=== PATIENT | female | born 1960 | race Caucasian/White ===

== ENCOUNTER → 2017-03-03 | Outpatient (CLI) | payer BC | LOC: FS 13:41 | PROVIDERS: ATTEND Internal Medicine Hematology & Oncology | DX: Z08 Encounter for follow-up examination after completed treatment for malignant neoplasm (principal); Z80.3 Family history of malignant neoplasm of breast; R79.89 Other specified abnormal findings of blood chemistry; Z92.21 Personal history of antineoplastic chemotherapy | CPT/HCPCS: 99213 ==

== ENCOUNTER 2018-08-30 14:29 | Outpatient (RCR) | payer BC | END 2018-11-28 | disposition home or self-care (01) | LOC: ONC 14:29 | PROVIDERS: ATTEND Internal Medicine Hematology & Oncology | DX: Z08 Encounter for follow-up examination after completed treatment for malignant neoplasm (principal); Z85.3 Personal history of malignant neoplasm of breast; F32.9 Major depressive disorder, single episode, unspecified; Z79.899 Other long term (current) drug therapy; Z92.21 Personal history of antineoplastic chemotherapy; Z92.3 Personal history of irradiation | CPT/HCPCS: 99213 ==

== ENCOUNTER → 2018-09-06 | Outpatient (CLI) | payer BC ==
--- NOTE | 2018-09-06 16:52 | Diagnostic Imaging Report ---
INDICATION: Left breast carcinoma. Patient reports recent history of bilateral breast rash. Patient currently complains of bilateral breast pain. No complaint of a palpable mass is reported today. COMPARISON: 03/06/2017 and 03/05/2016. TECHNIQUE: 2D and 3D bilateral diagnostic mammography was performed with CAD. FINDINGS: Scattered fibroglandular densities are identified. There are post therapeutic changes in the outer aspect of the left breast. The post surgical changes appear stable. There are benign calcifications. No discrete mass or malignant appearing microcalcifications are seen. The right breast is unremarkable. The axillae are unremarkable apart from post surgical changes on the left. IMPRESSION: No mammographic features suspicious for malignancy are identified. Even so, directed sonographic interrogation of the areas of pain in each breast is recommended and will be performed today. ACR BI-RADS Category 0: Incomplete. (Needs additional imaging evaluation). Result letter will be mailed to the patient. Note: At least 10% of breast cancer is not imaged by mammography. Dictated by: Dictated on workstation # [id number]
--- NOTE | 2018-09-06 19:54 | Diagnostic Imaging Report ---
INDICATION: Bilateral breast pain. CORRELATION is made with diagnostic mammogram earlier the same day. FINDINGS: Sonographic interrogation of the area of pain in the right breast which corresponds to the 8 to 9 o'clock location was performed. In addition, an area of pain on the left corresponds to the 3 to 4 o'clock location. No sonographic abnormalities are seen. No solid or cystic masses are identified. There are some calcifications in left breast showing some shadowing. No fluid collection is detected. IMPRESSION: BI-RADS category 2 No sonographic abnormality is identified. ACR BI-RADS Category 2: Benign findings. Result letter will be mailed to the patient. Note: At least 10% of breast cancer is not imaged by mammography. Dictated by: Dictated on workstation # [id number]
== END ==
LOC: RAD 13:56
PROVIDERS: ATTEND Nurse Practitioner Adult Health
DX: C50.912 Malignant neoplasm of unspecified site of left female breast (principal); N64.4 Mastodynia
CPT/HCPCS: 76642; 77066

== ENCOUNTER → 2018-10-27 | Outpatient (CLI) | payer BC ==
--- NOTE | 2018-10-27 14:45 | Diagnostic Imaging Report ---
INDICATION: Bronchitis, cough, congestion, and fever. FINDINGS: The lungs are clear. There is no infiltrate, effusion, pneumothorax, or failure pattern. IMPRESSION: No acute-appearing abnormality. Dictated by: Dictated on workstation # [id number]
== END ==
LOC: RAD FS 14:14
PROVIDERS: ATTEND Nurse Practitioner Family
DX: J40 Bronchitis, not specified as acute or chronic (principal); R50.9 Fever, unspecified
CPT/HCPCS: 71046

== ENCOUNTER → 2020-01-02 | Outpatient (CLI) | payer BC ==
[2020-01-02 13:29] LABS: BASOPHILS % (AUTO) 0 % (0-10); EOSINOPHILS # (AUTO) 0.1 10^3/uL (0.0-0.3); EOSINOPHILS % (AUTO) 2 % (0-10); HEMATOCRIT 45 % (35-52); HEMOGLOBIN 15.2 G/DL (11.5-16.0); LYMPHOCYTES % (AUTO) 18 % (12-44); MEAN CORPUSCULAR HEMOGLOBIN 30 PG (25-34); MEAN CORPUSCULAR HGB CONC 34 G/DL (32-36); MEAN CORPUSCULAR VOLUME 88 FL (80-99); MEAN PLATELET VOLUME 11.4 FL (7.4-10.4); MONOCYTES # (AUTO) 0.3 X 10^3 (0.0-1.0); MONOCYTES % (AUTO) 5 % (0-12); NEUTROPHILS % (AUTO) 74 % (42-75); PLATELET COUNT 101 10^3/uL (130-400); RED CELL DISTRIBUTION WIDTH 13.9 % (10.0-14.5); WHITE BLOOD COUNT 5.4 10^3/uL (4.3-11.0)
[2020-01-02 13:47] LABS: BILIRUBIN,TOTAL 0.4 MG/DL (0.1-1.0); CALCIUM 9.6 MG/DL (8.5-10.1); CREATININE SERUM 1.1 MG/DL (0.60-1.30); POTASSIUM 3.1 MMOL/L (3.6-5.0); TOTAL PROTEIN 7.7 GM/DL (6.4-8.2)
== END ==
LOC: EDSTATUS 03-14 16:32 → ONC 13:12
PROVIDERS: ATTEND Internal Medicine Hematology & Oncology
DX: C50.919 Malignant neoplasm of unspecified site of unspecified female breast (principal)
CPT/HCPCS: 80053; 85025; 99213

== ENCOUNTER → 2021-01-08 | Outpatient (CLI) | payer BC ==
--- NOTE | 2021-01-08 20:13 | Diagnostic Imaging Report ---
INDICATION: Routine screening. COMPARISON is made with prior mammograms from 09/15/2019 and 09/06/2018. 2-D and 3-D bilateral screening mammography was performed with CAD. Scattered fibroglandular densities are identified bilaterally. Post-therapeutic changes in the left breast are again noted. No discrete mass is identified. No malignant appearing microcalcifications are seen. There are benign calcifications bilaterally. Axillae are unremarkable. IMPRESSION: BI-RADS Category 2 No mammographic features suspicious for malignancy are identified. ACR BI-RADS Category 2: Benign findings. Result letter will be mailed to the patient. Note: At least 10% of breast cancer is not imaged by mammography. Dictated by: Dictated on workstation # [id number]
== END ==
LOC: RAD 14:30
PROVIDERS: ATTEND Internal Medicine Hematology & Oncology
DX: Z12.31 Encounter for screening mammogram for malignant neoplasm of breast (principal); C50.419 Malignant neoplasm of upper-outer quadrant of unspecified female breast
CPT/HCPCS: 77063; 77067

== ENCOUNTER → 2021-01-17 | Outpatient (CLI) | payer BC ==
[2021-01-17 13:30] LABS: BASOPHILS % (AUTO) 1 % (0-10); EOSINOPHILS # (AUTO) 0.1 10^3/uL (0.0-0.3); EOSINOPHILS % (AUTO) 2 % (0-10); HEMATOCRIT 44 % (35-52); HEMOGLOBIN 14.6 g/dL (11.5-16.0); LYMPHOCYTES # (AUTO) 1.7 10^3/uL (1.0-4.0); LYMPHOCYTES % (AUTO) 36 % (12-44); MEAN CORPUSCULAR HEMOGLOBIN 30 pg (25-34); MEAN CORPUSCULAR HGB CONC 33 g/dL (32-36); MEAN CORPUSCULAR VOLUME 89 fL (80-99); MONOCYTES # (AUTO) 0.4 10^3/uL (0.0-1.0); MONOCYTES % (AUTO) 8 % (0-12); NEUTROPHILS # (AUTO) 2.5 10^3/uL (1.8-7.8); NEUTROPHILS % (AUTO) 53 % (42-75); PLATELET COUNT 95 10^3/uL (130-400); WHITE BLOOD COUNT 4.7 10^3/uL (4.3-11.0)
[2021-01-17 14:02] LABS: ALANINE AMINOTRANSFERASE 26 U/L (0-55); ALBUMIN 4.2 GM/DL (3.2-4.5); ALKALINE PHOSPHATASE 110 U/L (40-136); BILIRUBIN,TOTAL 0.5 MG/DL (0.1-1.0); BUN/CREATININE RATIO 12; CALCIUM 9.3 MG/DL (8.5-10.1); CARBON DIOXIDE 30 MMOL/L (21-32); CHLORIDE 100 MMOL/L (98-107); CREATININE SERUM 0.84 MG/DL (0.60-1.30); GFR ESTIMATED > 60; GLUCOSE 123 MG/DL (70-105); POTASSIUM 2.8 MMOL/L (3.6-5.0); SODIUM 139 MMOL/L (135-145); TOTAL PROTEIN 7.8 GM/DL (6.4-8.2)
== END ==
LOC: ONC 13:23
PROVIDERS: ATTEND Internal Medicine Hematology & Oncology
DX: C50.012 Malignant neoplasm of nipple and areola, left female breast (principal); I10 Essential (primary) hypertension; E11.9 Type 2 diabetes mellitus without complications; E05.90 Thyrotoxicosis, unspecified without thyrotoxic crisis or storm; Z90.12 Acquired absence of left breast and nipple; Z92.3 Personal history of irradiation; Z92.21 Personal history of antineoplastic chemotherapy
CPT/HCPCS: 80053; 85025; G0463; 99213

== ENCOUNTER 2021-02-04 09:48 | Emergency (ER) | payer BC ==
[~2021-02-04] VITALS: Ht 154 cm; Wt 87.0 kg
[2021-02-04] MEDS ORDERED: ONDANSETRON 4 MG/2 ML (SDV) Z0FRAN IVP ONE (10:15)
[2021-02-04] MEDS ORDERED: fentaNYL INJ 100 MCG/2 ML AMP IVP ONE (10:15)
[2021-02-04] MEDS ORDERED: NS IV 1000 ML 1,000 ML IV SCH ×2 (10:15→12:15)
--- NOTE | 2021-02-04 10:19 | ED Abdominal Pain ---
General Chief Complaint: Abdominal/GI Problems Stated Complaint: DIAHRREA,N/V ABD PAIN Nursing Triage Note: Pt reports headache and leg cramps that started on 01/31, followed by diarrhea on 02/01. Pt states she took immodium on that day and began having abdominal pain and vomiting. Pt reports she continues to have vomiting and diarrhea and has been unable to keep solid foods down. Pt was seen at urgent care in [facility] and received shot "for pain". Source of Information: Patient Exam Limitations: No Limitations History of Present Illness Date Seen by Provider: Feb 04, 2021 Time Seen by Provider: 09:56 Initial Comments Patient to the ER by private conveyance from home with chief complaint of continued nausea vomiting and loose stools since , 4 days ago. She started off with just diarrhea but she took some Pepto-Bismol and Imodium which stopped her diarrhea 2 to 3 days ago. She then started having copious vomiting and epigastric pain. She has had hysterectomy, C-sections but no other abdominal surgery. She has had left breast cancer with lumpectomy known to Dr. Jaimes. She is type II diabetic but not on insulin. She is not having any dysuria fevers cough shortness of air. She has had Covid in July and moved her in a vaccines for Covid since then. She went to the urgent care at [facility] this morning and they did a Covid test but she does not have the results for couple days. Urgent Care gave her a shot of something for pain and nausea but she does not know the names of them. She says they have not helped. She was directed to go to the ER. Allergies and Home Medications Allergies Coded Allergies: morphine (Unverified Allergy, Unknown, 02/04/21) Home Medications L.acidoph & Paracasei,B.lactis 1 Each Capsule, 1 EACH PO BID Prescribed by: RYLEY JOHNSON on 02/04/21 144 Omeprazole 20 Mg Capsule.dr, 20 MG PO BID Prescribed by: RYLEY JOHNSON on 02/04/21 144 Ondansetron 4 Mg Tab.rapdis, 4-8 MG PO Q6H PRN for NAUSEA/VOMITING Prescribed by: RYLEY JOHNSON on 02/04/21 1446 Patient Home Medication List Home Medication List Reviewed: Yes Review of Systems Review of Systems Constitutional: No chills, No fever; malaise EENTM: No Blurred Vision, No Double Vision Respiratory: Denies Cough, Denies Shortness of Air Cardiovascular: Denies Chest Pain, Denies Lightheadedness Gastrointestinal: Denies Constipated; Diarrhea, Nausea, Poor Fluid Intake, Vomiting Genitourinary: Denies Burning, Denies Discharge Musculoskeletal: No back pain, No joint pain All Other Systems Reviewed Negative Unless Noted: Yes Past Ctkjege-Rgcyew-Gxazig Hx Patient Social History Tobacco Use?: No Substance use?: No Pt feels they are or have been: No Immunizations Up To Date Second COVID19 Vaccination Juanito: November 2020 COVID19 Vaccine Vp [employer]: Moderna Physical Exam Vital Signs Vital Signs - First Documented 02/04/21 02/04/21 09:58 11:10 Temp 36.5 Pulse 84 Resp 18 B/P (MAP) 130/87 (101) Pulse Ox 96 O2 Delivery Room Air O2 Flow Rate 2.00 FiO2 96 Capillary Refill : Less Than 3 Seconds Height/Weight/BMI Height: '" Weight: lbs. oz. kg; 36.00 BMI Method: General Appearance: WD/WN, mild distress HEENT: PERRL/EOMI, pharynx normal Neck: full range of motion, normal inspection Respiratory: no respiratory distress, no accessory muscle use Cardiovascular: normal peripheral pulses, regular rate, rhythm Gastrointestinal: normal bowel sounds, soft, tenderness Extremities: non-tender, normal capillary refill Neurologic/Psychiatric: alert, normal mood/affect, oriented x 3 Skin: normal color, warm/dry Progress/Results/Core Measures Results/Orders Lab Results Laboratory Tests Test 02/04/21 10:24 02/04/21 12:14 Range/Units White Blood Count 6.1 4.3-11.0 10^3/uL Red Blood Count 5.24 H 3.80-5.11 10^6/uL Hemoglobin 15.4 11.5-16.0 g/dL Hematocrit 46 35-52 % Mean Corpuscular Volume 88 80-99 fL Mean Corpuscular Hemoglobin 29 25-34 pg Mean Corpuscular Hemoglobin Concent 34 32-36 g/dL Red Cell Distribution Width 14.6 H 10.0-14.5 % Platelet Count 97 L 130-400 10^3/uL Mean Platelet Volume 11.0 9.0-12.2 fL Immature Granulocyte % (Auto) 1 % Neutrophils (%) (Auto) 47 42-75 % Lymphocytes (%) (Auto) 42 12-44 % Monocytes (%) (Auto) 8 0-12 % Eosinophils (%) (Auto) 2 0-10 % Basophils (%) (Auto) 0 0-10 % Neutrophils # (Auto) 2.9 1.8-7.8 10^3/uL Lymphocytes # (Auto) 2.5 1.0-4.0 10^3/uL Monocytes # (Auto) 0.5 0.0-1.0 10^3/uL Eosinophils # (Auto) 0.1 0.0-0.3 10^3/uL Basophils # (Auto) 0.0 0.0-0.1 10^3/uL Immature Granulocyte # (Auto) 0.0 0.0-0.1 10^3/uL Percent Immature Platelet Fraction 4.2 0.0-7.6 % Sodium Level 138 135-145 MMOL/L Potassium Level 2.6 L 3.6-5.0 MMOL/L Chloride Level 104 98-107 MMOL/L Carbon Dioxide Level 25 21-32 MMOL/L Anion Gap 9 5-14 MMOL/L Blood Urea Nitrogen 14 7-18 MG/DL Creatinine 0.69 0.60-1.30 MG/DL Estimat Glomerular Filtration Rate > 60 BUN/Creatinine Ratio 20 Glucose Level 102 70-105 MG/DL Calcium Level 7.5 L 8.5-10.1 MG/DL Corrected Calcium 8.1 L 8.5-10.1 MG/DL Magnesium Level 1.8 1.6-2.4 MG/DL Total Bilirubin 0.5 0.1-1.0 MG/DL Aspartate Amino Transf (AST/SGOT) 25 5-34 U/L Alanine Aminotransferase (ALT/SGPT) 20 0-55 U/L Alkaline Phosphatase 58 40-136 U/L C-Reactive Protein High Sensitivity 1.17 H 0.00-0.50 MG/DL Total Protein 5.4 L 6.4-8.2 GM/DL Albumin 3.2 3.2-4.5 GM/DL Lipase 39 8-78 U/L Influenza Type A (RT-PCR) Not Detected Not Detecte Influenza Type B (RT-PCR) Not Detected Not Detecte SARS-CoV-2 RNA (RT-PCR) Not Detected Not Detecte Urine Color YELLOW Urine Clarity CLEAR Urine pH 6.0 5-9 Urine Specific Mission <=1.005 1.016-1.022 Urine Protein NEGATIVE NEGATIVE Urine Glucose (UA) 3+ H NEGATIVE Urine Ketones NEGATIVE NEGATIVE Urine Nitrite NEGATIVE NEGATIVE Urine Bilirubin NEGATIVE NEGATIVE Urine Urobilinogen 0.2 < = 1.0 MG/DL Urine Leukocyte Esterase NEGATIVE NEGATIVE Urine RBC (Auto) NEGATIVE NEGATIVE Urine RBC NONE /HPF Urine WBC 0-2 /HPF Urine Squamous Epithelial Cells 2-5 /HPF Urine Crystals PRESENT H /LPF Urine Amorphous Sediment FEW VALERIE URATES H /LPF Urine Bacteria TRACE /HPF Urine Casts NONE /LPF Urine Mucus NEGATIVE /LPF Urine Culture Indicated NO My Orders Orders - RYLEY JOHNSON Ed Iv/Invasive Line Start (02/04/21 10:15) Ns Iv 1000 Ml (Sodium Chloride 0.9%) (02/04/21 10:15) Ct Abdomen/Pelvis W (02/04/21 10:15) Cbc With Automated Diff (02/04/21 10:15) Comprehensive Metabolic Panel (02/04/21 10:15) Hs C Reactive Protein (02/04/21 10:15) Lipase (02/04/21 10:15) Ondansetron Injection (Zofran Injectio (02/04/21 10:15) Fentanyl Inj (Sublimaze Injection) (02/04/21 10:15) Ua Culture If Indicated (02/04/21 10:15) Covid 19 Inhouse Test (02/04/21 10:19) Influenza A And B By Pcr (02/04/21 10:19) Potassium Cl 10meq/50ml Ivpb (Kcl 10 Meq (02/04/21 11:15) Magnesium (02/04/21 11:09) Iohexol Injection (Omnipaque 350 Mg/Ml 1 (02/04/21 11:30) Received Contrast (Hold Metformin- Contr (02/04/21 11:30) Ns (Ivpb) (Sodium Chloride 0.9% Ivpb Bag (02/04/21 11:30) Sodium Chloride Flush (Catheter Flush Sy (02/04/21 11:30) Ed Iv/Invasive Line Start (02/04/21 12:10) Ns Iv 1000 Ml (Sodium Chloride 0.9%) (02/04/21 12:15) Ns Iv 1000 Ml (Sodium Chloride 0.9%) (02/04/21 12:11) Orthostatic Vital Signs (Adult (02/04/21 13:28) Lidocaine 2% Viscous 15 Ml (Xylocaine Vi (02/04/21 13:30) Famotidine Tablet (Pepcid Tablet) (02/04/21 13:28) Antacid Suspension (Mylanta Suspension (02/04/21 13:30) Ed Iv/Invasive Line Start (02/04/21 13:37) Lactated Ringers (Lr 1000 Ml Iv Solution (02/04/21 13:45) Metoclopramide Injection (Reglan Injecti (02/04/21 15:15) Diphenhydramine Tablet (Benadryl Tablet) (02/04/21 15:15) Medications Given in ED Current Medications Medications Dose Ordered Sig/Vianca Route Start Time Stop Time Status Last Admin Dose Admin Al Hydrox/Mg Hydrox/Simethicone 30 ml ONCE ONCE PO 02/04/21 13:30 02/04/21 13:31 DC 02/04/21 13:55 30 ML Diphenhydramine HCl 25 mg ONCE ONCE PO 02/04/21 15:15 02/04/21 15:16 DC 02/04/21 15:16 25 MG Fentanyl Citrate 50 mcg ONCE ONCE IVP 02/04/21 10:15 02/04/21 10:18 DC 02/04/21 10:55 50 MCG Iohexol 100 ml ONCE ONCE IV 02/04/21 11:30 02/04/21 11:31 DC 02/04/21 12:07 100 ML Lactated Ringer's 1,000 ml @ 0 mls/hr Q0M ONCE IV 02/04/21 13:45 02/04/21 13:46 DC 02/04/21 13:51 1,000 MLS/HR Lidocaine HCl 15 ml ONCE ONCE PO 02/04/21 13:30 02/04/21 13:31 DC 02/04/21 13:55 15 ML Metoclopramide HCl 5 mg ONCE ONCE IVP 02/04/21 15:15 02/04/21 15:16 DC 02/04/21 15:07 5 MG Ondansetron HCl 4 mg ONCE ONCE IVP 02/04/21 10:15 02/04/21 10:18 DC 02/04/21 10:54 4 MG Potassium Chloride 50 ml @ 50 mls/hr ONCE ONCE IV 02/04/21 11:15 02/04/21 12:14 DC 02/04/21 12:13 50 MLS/HR Sodium Chloride 10 ml NEEDED PRN IV 02/04/21 11:30 02/04/21 15:42 DC 02/04/21 12:07 10 ML Sodium Chloride 100 ml ONCE ONCE IV 02/04/21 11:30 02/04/21 11:31 DC 02/04/21 12:07 80 ML Vital Signs/I&O 02/04/21 02/04/21 02/04/21 02/04/21 09:58 11:10 13:42 15:16 Temp 36.5 37.0 Pulse 84 78 82 84 84 Resp 18 20 B/P (MAP) 130/87 (101) 93/63 (73) 103/68 150/73 (98) 102/67 (79) Pulse Ox 96 99 O2 Delivery Room Air Nasal Cannula Room Air O2 Flow Rate 2.00 FiO2 96 Blood Pressure Mean: 101 Progress Progress Note #1: Time: 13:19 Progress Note Patient had good blood pressures initially however they continue to drift down. She got 2 L of fluid with switch to the other arm and her blood pressure was okay. We are going to do some orthostatics and see if she has any orthostasis as well as give her a GI cocktail for epigastric pain. If she does well with this then we will let her go home. Progress Note #2: Time: 13:48 Progress Note Orthostatic vital signs are not remarkable for orthostatic hypotension. Her blood pressure went up as she stood up. She did not have any near syncope. Patient's blood pressure was soft so we will initiate another liter of fluids. We did give her the option for observation stay and some fluids overnight but she would prefer to go home to her family so she would like to do fluids in the ER. If the first liter does not work we will give her a second 1 and reevaluate. Progress Note #3: Time: 14:42 Progress Note The patient's blood pressure has improved to 110/75. We are going to give her a round of Carafate and encourage her to take omeprazole 20 twice a day instead of 40 once a day. We will give her a referral to Dr. Barros to discuss EGD if her symptoms persist. Diagnostic Imaging Diagonstic Imaging: CT Plain Films/CT/US/NM/MRI: abdomen, pelvis Comments [facility] [place], [place] NAME: PORSHA COLLIER [facility] REC#: [id number] PT STATUS: REG ER : 1960 PHYSICIAN: RYLEY JOHNSON MD ADMIT DATE: 02/04/21/ER Draft Date of Exam:02/04/21 CT ABDOMEN/PELVIS W PROCEDURE: CT abdomen and pelvis with contrast. TECHNIQUE: Multiple contiguous axial images were obtained through the abdomen and pelvis after administration of intravenous contrast. Auto Exposure Controls were utilized during the CT exam to meet ALARA standards for radiation dose reduction. All CT scans use one or more of the following dose optimizing techniques: automated exposure control, MA and/or KvP adjustment based on patient size and exam type or iterative reconstruction. INDICATION: Headache and leg cramping for 4 days. Patient also has diarrhea and abdominal pain as well as vomiting for 3 days. COMPARISON: No prior studies are available for comparison. FINDINGS: The lung bases are clear. There is generalized low density throughout the liver, consistent with hepatic steatosis. No discrete liver mass is detected. There is no biliary ductal dilatation. The pancreas and spleen are unremarkable. No adrenal mass is detected. The kidneys are unremarkable. The aorta is nonaneurysmal. No central retroperitoneal or mesenteric lymphadenopathy is identified. The bowel loops are of normal caliber. There is no obstruction. There is no free fluid or fluid collection. The bladder is unremarkable. No definite pelvic lymphadenopathy is identified. The bony structures are unremarkable. IMPRESSION: 1. Hepatic steatosis. 2. Otherwise, unremarkable CT of the abdomen and pelvis. No acute abnormality is detected. Dictated on workstation # [id number] Dict: 02/04/21 1237 Trans: 02/04/21 1241 [id number] Interpreted by: BULL ORDAZ MD Electronically signed by: Reviewed: Reviewed by Me Departure Impression Primary Impression: Gastroenteritis and colitis, viral Additional Impression: Gastritis Qualified Codes: K29.00 - Acute gastritis without bleeding Disposition: HOME, SELF-CARE Condition: Stable Departure-Patient Inst. Decision time for Depature: 14:43 Referrals: [facility] (PCP) Primary Care Physician VIOLETA SUTTON APRN (Family) Primary Care Physician GARY BARROS DO Patient Instructions: Gastritis, Viral Gastroenteritis, Adult (DC) Add. Discharge Instructions: Drink lots of fluids especially sports drinks. Maalox, Mylanta, Tums, Rolaids etc. as necessary for burning pain in your belly or esophagus. Carafate half an hour before you eat meals and at bedtime for the next 2 weeks to protect the lining of your esophagus and stomach. Start taking omeprazole 20 mg twice a day for the next month and then resume your normal dose. Zofran 1 to 2 tablets every 6 hours under the tongue as necessary for nausea and/or vomiting. Follow-up with your primary care doctor in the next 1 to 2 weeks for reevaluation. Return to the nearest ER promptly if you are developing worsening pain, intractable nausea and vomiting or other worrisome symptoms. Imodium 2 tablets initially followed by 1 tablet every 4 hours afterwards that you are still having loose watery stools. Probiotics 1 capsule twice a day to replenish your normal gut bacteria for the next month. All discharge instructions reviewed with patient and/or family. Voiced understanding. Scripts Ondansetron (Ondansetron Odt) 4 Mg Tab.rapdis 4-8 MG PO Q6H PRN for NAUSEA/VOMITING, #15 TAB 0 Refills Prov: RYLEY JOHNSON 02/04/21 L.acidoph & Paracasei,B.lactis (Probiotic) 1 Each Capsule 1 EACH PO BID for 30 Days, #6 CAP 0 Refills Prov: RYLEY JOHNSON 02/04/21 Omeprazole (Omeprazole) 20 Mg Capsule.dr 20 MG PO BID for 30 Days, #60 CAP 0 Refills Prov: RYLEY JOHNSON 02/04/21 Copy Copies To 1: GARY BARROS DO RYLEY JOHNSON Feb 04, 2021 10:19
[2021-02-04 10:36] LABS: BASOPHILS % (AUTO) 0 % (0-10)
[2021-02-04 10:38] LABS: EOSINOPHILS # (AUTO) 0.1 10^3/uL (0.0-0.3); EOSINOPHILS % (AUTO) 2 % (0-10); HEMATOCRIT 46 % (35-52); HEMOGLOBIN 15.4 g/dL (11.5-16.0); LYMPHOCYTES # (AUTO) 2.5 10^3/uL (1.0-4.0); LYMPHOCYTES % (AUTO) 42 % (12-44); MEAN CORPUSCULAR HEMOGLOBIN 29 pg (25-34); MEAN CORPUSCULAR HGB CONC 34 g/dL (32-36); MEAN CORPUSCULAR VOLUME 88 fL (80-99); MONOCYTES # (AUTO) 0.5 10^3/uL (0.0-1.0); MONOCYTES % (AUTO) 8 % (0-12); NEUTROPHILS # (AUTO) 2.9 10^3/uL (1.8-7.8); NEUTROPHILS % (AUTO) 47 % (42-75); PLATELET COUNT 97 10^3/uL (130-400); WHITE BLOOD COUNT 6.1 10^3/uL (4.3-11.0)
[2021-02-04 10:44] LABS: ALBUMIN 3.2 GM/DL (3.2-4.5); CHLORIDE 104 MMOL/L (98-107); POTASSIUM 2.6 MMOL/L (3.6-5.0); SODIUM 138 MMOL/L (135-145)
[2021-02-04 10:45] LABS: CALCIUM 7.5 MG/DL (8.5-10.1)
[2021-02-04 10:47] LABS: GLUCOSE 102 MG/DL (70-105); TOTAL PROTEIN 5.4 GM/DL (6.4-8.2)
[2021-02-04 10:48] LABS: BILIRUBIN,TOTAL 0.5 MG/DL (0.1-1.0); CARBON DIOXIDE 25 MMOL/L (21-32)
[2021-02-04 10:50] LABS: ALKALINE PHOSPHATASE 58 U/L (40-136); CREATININE SERUM 0.69 MG/DL (0.60-1.30); GFR ESTIMATED > 60
[2021-02-04 10:51] LABS: BUN/CREATININE RATIO 20
[2021-02-04 10:53] LABS: ALANINE AMINOTRANSFERASE 20 U/L (0-55)
[2021-02-04 10:54] LABS: LIPASE 39 U/L (8-78)
[2021-02-04] MEDS ORDERED: POTASSIUM CL 10MEQ/50ML IVPB 50 ML IV ONE (11:15)
[2021-02-04] MEDS ORDERED: CATHETER FLUSH 10 ML SYR IV PRN (11:30)
[2021-02-04] MEDS ORDERED: IOHEXOL 350 MG/ML 100 ML (OMNIPAQUE 350) VIAL IV ONE (11:30)
[2021-02-04] MEDS ORDERED: HOLD METFORMIN - RECEIVED CONTRAST 20 ML VIAL IV SCH (11:30)
[2021-02-04] MEDS ORDERED: NS 100 ML (IVPB) BAG IV ONE (11:30)
[2021-02-04] MEDS ORDERED: NS IV 1000 ML 1,000 ML ONE (12:11)
[2021-02-04 12:26] LABS: BILIRUBIN,URINE NEGATIVE (NEGATIVE); CLARITY,URINE CLEAR; COLOR,URINE YELLOW; GLUCOSE, URINE (UA) 3+ (NEGATIVE); KETONES,URINE NEGATIVE (NEGATIVE); LEUKOCYTE ESTERASE ,URINE NEGATIVE (NEGATIVE); NITRITE,URINE NEGATIVE (NEGATIVE); PROTEIN,URINE NEGATIVE (NEGATIVE)
[2021-02-04 12:39] LABS: BACTERIA,URINE TRACE /HPF; WBC,URINE 0-2 /HPF
[2021-02-04 12:40] LABS: AMORPHOUS SEDIMENT,UR FEW AMOR URATES /LPF
--- NOTE | 2021-02-04 12:42 | Diagnostic Imaging Report ---
PROCEDURE: CT abdomen and pelvis with contrast. TECHNIQUE: Multiple contiguous axial images were obtained through the abdomen and pelvis after administration of intravenous contrast. Auto Exposure Controls were utilized during the CT exam to meet ALARA standards for radiation dose reduction. All CT scans use one or more of the following dose optimizing techniques: automated exposure control, MA and/or KvP adjustment based on patient size and exam type or iterative reconstruction. INDICATION: Headache and leg cramping for 4 days. Patient also has diarrhea and abdominal pain as well as vomiting for 3 days. COMPARISON: No prior studies are available for comparison. FINDINGS: The lung bases are clear. There is generalized low density throughout the liver, consistent with hepatic steatosis. No discrete liver mass is detected. There is no biliary ductal dilatation. The pancreas and spleen are unremarkable. No adrenal mass is detected. The kidneys are unremarkable. The aorta is nonaneurysmal. No central retroperitoneal or mesenteric lymphadenopathy is identified. The bowel loops are of normal caliber. There is no obstruction. There is no free fluid or fluid collection. The bladder is unremarkable. No definite pelvic lymphadenopathy is identified. The bony structures are unremarkable. IMPRESSION: 1. Hepatic steatosis. 2. Otherwise, unremarkable CT of the abdomen and pelvis. No acute abnormality is detected. Dictated by: Dictated on workstation # [id number]
[2021-02-04] MEDS ORDERED: FAMOTIDINE 20 MG (PEPCID) TABLET PO STA (13:28)
[2021-02-04] MEDS ORDERED: ANTACID SUSP 30 ML UDC (MYLANTA) PO ONE (13:30)
[2021-02-04] MEDS ORDERED: LIDOCAINE 2% VISCOUS 15 ML UDC PO ONE (13:30)
[2021-02-04 13:42] VITALS: BP_SYST 102; BP_SYST 150; BP_SYST 93; BP_DIAS 63; BP_DIAS 67; BP_DIAS 73
[2021-02-04] MEDS ORDERED: LACTATED RINGERS 1,000 ML IV ONE (13:45)
[2021-02-04] MEDS ORDERED: L.AC1CAP6 PO (14:46)
[2021-02-04] MEDS ORDERED: ONDA4TAB11 PO (14:46)
[2021-02-04] MEDS ORDERED: OMEP20CA18 PO (14:46)
[2021-02-04] MEDS ORDERED: diphenhydrAMINE 25 MG TAB (BENADRYL) PO ONE (15:15)
[2021-02-04] MEDS ORDERED: METOCLOPRAMIDE INJ 10 MG/2 ML (REGLAN) IVP ONE (15:15)
[2021-02-04 15:16] VITALS: BP 103/68
== END 2021-02-04 15:16 | disposition home or self-care (01) ==
LOC: EDUNIT# 09:48 → ER 09:50
DX: K52.9 Noninfective gastroenteritis and colitis, unspecified (principal); K29.70 Gastritis, unspecified, without bleeding; E11.9 Type 2 diabetes mellitus without complications; Z90.12 Acquired absence of left breast and nipple; Z90.710 Acquired absence of both cervix and uterus; Z20.822 Contact with and (suspected) exposure to COVID-19
CPT/HCPCS: 36415; 74177; 80053; 81000; 83690; 83735; 85025; 86141; 87636

== ENCOUNTER 2021-03-07 05:28 | Outpatient (RCR) | payer BC ==
[~2021-03-07] VITALS: Ht 154.9 cm; Wt 88.9 kg
[~2021-03-07 05:28] MED LIST: ALPR0.5T7 PO; ATOR10TA66 PO; DAPA10TA PO; DULA1.5P2 SQ; GABA-490 PO; HYDR25TA4 PO; L.AC1CAP6 PO; LEVO75CA5 PO; MELA10TA7 PO; OLME40TA18 PO; OMEP20CA18 PO; ONDA4TAB11 PO; SUCR1TAB PO; VENL150T PO; VENL37.57 PO; ZOLP10TA PO
== END 2021-03-07 10:49 | disposition home or self-care (01) ==
LOC: PREOP 05:28
PROVIDERS: ATTEND Surgery
DX: Z01.818 Encounter for other preprocedural examination (principal); R13.10 Dysphagia, unspecified; Z12.11 Encounter for screening for malignant neoplasm of colon; Z20.822 Contact with and (suspected) exposure to COVID-19
CPT/HCPCS: 87635

== ENCOUNTER 2021-03-11 08:51 | Day surgery (SDC) | payer BC ==
[2021-03-11] VITALS (8 sets, daily range): BP systolic 107–129; BP diastolic 57–72
[2021-03-11] MEDS ORDERED: LACTATED RINGERS 1,000 ML IV STA (08:57)
[2021-03-11] MEDS ORDERED: HURRICAINE EXT TUBE (BENZOCAINE) XX PRN (09:00)
--- NOTE | 2021-03-11 09:09 | Progress Note-Pre Operative ---
Pre-Operative Progress Note H&P Reviewed The H&P was reviewed, patient examined and no changes noted. Time Seen by Provider: 09:07 Date H&P Reviewed: Mar 11, 2021 Time H&P Reviewed: 09:07 Pre-Operative Diagnosis: Chronic Gastritis, Dysphagia, Screening colonoscopy LEONARDO SHARMA DO Mar 11, 2021 09:09
[2021-03-11] MEDS ORDERED: MIDAZOLAM 2 MG/2 ML (VERSED) VIAL ONE (09:41)
[2021-03-11] MEDS ORDERED: PROPOFOL INJECTION 50 ML IV ONE ×2 (09:41→09:57)
--- NOTE | 2021-03-11 10:42 | Progress Note-Post Operative ---
Post-Operative Progess Note Surgeon (s)/Time Signal Wirer (s) Surgeon LEONARDO SHARMA DO Time Signal Wirer: Heron Chin, MSIII Pre-Operative Diagnosis Chronic Gastritis, Dysphagia, Screening colonoscopy Post-Operative Diagnosis Gastritis Esophagitis Hiatal hernia Gastric polyp Polyps of colon int hemorrhoids Procedure & Operative Findings Date of Procedure 03/11/21 Procedure Performed/Findings 1) EGD with bx 2) EGD with hot bx removal of polyp 3) Colon with snare polypectomy PROCEDURE NOTE: After informed consent was obtained, the patient was brought to the endoscopy suite, placed in bed in left lateral decubitus position. She was administered IV sedation by the SCCM ADMINISTRATOR who then monitored vitals the entire time, heart rate, blood pressure and pulse ox and the scope was inserted down the mouth through the esophagus into the stomach. On the way down, noted some mild esophagitis, took a picture, pushed into the stomach, pushed past the antrum into the duodenum. Duodenum looked good. Pulled back and did a biopsy of antrum, then retroflexed the scope and saw gastric polyps (possibly inflammatory) and a small hiatal hernia. Took a picture of these and then did biopsy of the antrum. I then elected to remove a Gastric polyp with hot biopsy; completely removed one and then biopsied another. Next pulled the scope into the GE junction and then did a biopsy of the GE junction. Pushed the scope back into the stomach, took another picture and then suctioned all the air out of the stomach. At this point pulled the scope up the esophagus and out the mouth. I did not see any cause of dysphagia in the esophagus. Switched camera, switched gloves, went down below and started the colonoscopy. Pushed all the way into about 160 cm to get all the way to cecum. In the ascending colon I found a polyp and did a snare polypectomy. Once in the cecum took a picture of the appendiceal orifice, noted the ileocecal valve and found another polyp. Did another snare polypectomy of this one. Finally, slowly withdrew the scope, insufflating to look circumferentially at the farfan starting in the cecum and up the ascending colon; where I found another polyp. Removed this one with snare polypectomy as well and continued to the hepatic flexure, then down the transverse colon, splenic flexure, into the descending colon, down into the sigmoid and finally into the rectum, retroflexed in the rectal vault, saw some minimal internal hemorrhoids and took a picture of this. ] The patient tolerated the procedure and she recovered in the endoscopy suite. Anesthesia Type IV sedation by SCCM ADMINISTRATOR Estimated Blood Loss Estimated blood loss (mL): scant Specimens/Packing Specimens Removed antral bx GE jxn bx Gastric polyp x 2 asc colon polyp x 2 cecal polyp LEONARDO SHARMA DO Mar 11, 2021 10:42
--- NOTE | 2021-03-11 10:44 | Endoscopy Discharge Instruct ---
Endo Procedure/Findings Findings 1.: Hiatal Hernia, Gastritis 2.: Polyp (Gastric - multiple) 3.: Polyp (colon) 4.: Internal Hemorrhoids Discharge Instructions - Activity: You might feel a little sleepy until tomorrow. This is due to the medicine you received to relax you. Until tomorrow, you should: NOT drive a car, operate machinery or power tools. NOT drink any alcoholic beverages. NOT make any important decisions or sign importortant papers. Do not return to work until tomorrow, unless otherwise instructed. Resume previous activities tomorrow. Diet: Start by taking liquids. If you tolerate liquids, advance to solid food. 1.: EGD in 1 year 2.: Colonscopy in 3 years Notify Physician - If you experience excessive bleeding, unusual abdominal pain, fever, or chest pain, contact your doctor immediately. LEONARDO SHARMA DO Mar 11, 2021 10:44
--- NOTE | 2021-03-11 12:37 | Anesthesia-General Post-Op ---
MAC Patient Condition Mental Status/LOC: Same as Preop Cardiovascular: Satisfactory Nausea/Vomiting: Absent Respiratory: Satisfactory Pain: Controlled Complications: Absent Post Op Complications Complications None Follow Up Care/Instructions Patient Instructions None needed. Anesthesiology Discharge Order Discharge Order Patient is doing well, no complaints, stable vital signs, no apparent adverse anesthesia problems. No complications reported per nursing. ANNA GAMBOA CRNA Mar 11, 2021 12:37
== END 2021-03-11 11:13 | disposition home or self-care (01) ==
LOC: ENDO 08:51
PROVIDERS: ATTEND Surgery
DX: D12.2 Benign neoplasm of ascending colon (principal); D12.0 Benign neoplasm of cecum; K29.50 Unspecified chronic gastritis without bleeding; K20.90 Esophagitis, unspecified without bleeding; K44.9 Diaphragmatic hernia without obstruction or gangrene; K31.7 Polyp of stomach and duodenum; K64.8 Other hemorrhoids; I10 Essential (primary) hypertension; E11.9 Type 2 diabetes mellitus without complications; E03.9 Hypothyroidism, unspecified; Z79.899 Other long term (current) drug therapy; Z79.84 Long term (current) use of oral hypoglycemic drugs; Z79.890 Hormone replacement therapy
CPT/HCPCS: 88305

== ENCOUNTER 2021-03-13 21:53 | Emergency (ER) | payer BC | END 2021-03-13 22:30 | disposition left against medical advice (07) | LOC: EDUNIT# 21:53 → ER 21:55 | DX: R10.9 Unspecified abdominal pain (principal) ==

== ENCOUNTER → 2021-03-14 | Outpatient (CLI) | payer BC ==
--- NOTE | 2021-03-14 14:22 | Diagnostic Imaging Report ---
INDICATION: Recent colonoscopy and upper gastrointestinal. Patient complains of severe abdominal pain. TIME OF EXAM: 1:57 PM FINDINGS: Heart size is normal. Lungs are clear. No free air is identified. There does appear to be some gaseous distention of bowel loops in the central abdomen, mostly small bowel. The colon appears to be decompressed. There is moderate stool in the right colon. No bowel wall thickening or pathologic calcifications are seen. IMPRESSION: There is nonspecific mild gaseous distention of small bowel loops. The study is otherwise unremarkable. Dictated by: Dictated on workstation # [id number]
== END ==
LOC: RAD 13:33
PROVIDERS: ATTEND Surgery
DX: R10.9 Unspecified abdominal pain (principal)
CPT/HCPCS: 74022

== ENCOUNTER → 2021-06-11 | Outpatient (CLI) | payer BC ==
[2021-06-11 15:44] LABS: BASOPHILS % (AUTO) 1 % (0-10); EOSINOPHILS # (AUTO) 0.1 10^3/uL (0.0-0.3); EOSINOPHILS % (AUTO) 1 % (0-10); HEMATOCRIT 39 % (35-52); LYMPHOCYTES # (AUTO) 1.3 X 10^3 (1.0-4.0); LYMPHOCYTES % (AUTO) 36 % (12-44); MEAN CORPUSCULAR HEMOGLOBIN 25 pg (25-34); MEAN CORPUSCULAR HGB CONC 31 g/dL (32-36); MEAN CORPUSCULAR VOLUME 79 fL (80-99); MEAN PLATELET VOLUME 11.6 fL (9.0-12.2); MONOCYTES # (AUTO) 0.3 X 10^3 (0.0-1.0); MONOCYTES % (AUTO) 7 % (0-12); NEUTROPHILS # (AUTO) 2.1 X 10^3 (1.8-7.8); NEUTROPHILS % (AUTO) 55 % (42-75); PLATELET COUNT 107 10^3/uL (130-400); WHITE BLOOD COUNT 3.7 10^3/uL (4.3-11.0)
== END ==
LOC: ONC 13:56
PROVIDERS: ATTEND Nurse Practitioner Adult Health
DX: C50.412 Malignant neoplasm of upper-outer quadrant of left female breast (principal); I10 Essential (primary) hypertension; E03.9 Hypothyroidism, unspecified; F41.9 Anxiety disorder, unspecified; F32.9 Major depressive disorder, single episode, unspecified; E11.9 Type 2 diabetes mellitus without complications; Z79.2 Long term (current) use of antibiotics; Z98.890 Other specified postprocedural states; Z79.899 Other long term (current) drug therapy; Z79.890 Hormone replacement therapy; Z17.0 Estrogen receptor positive status [ER+]; Z79.84 Long term (current) use of oral hypoglycemic drugs
CPT/HCPCS: 85025; G0463; 99214